=== PATIENT | female | born 1955 | race Caucasian/White ===

== ENCOUNTER 2017-10-13 10:58 | Day surgery (SDC) | payer MEDICARE, MEDICAID ==
[2017-10-12 11:22] VITALS: BMI 37.8
[2017-10-13] MEDS ORDERED: Lidocaine 1% PF 5 ML VIAL ONE (14:11)
[2017-10-13] MEDS ORDERED: PROPOFOL 200 MG/20 ML VIAL ONE (14:11)
--- NOTE | 2017-10-13 18:02 | OP ---
DATE OF PROCEDURE: 10/13/2017 PROCEDURE: Colonoscopy with polypectomy and control of hemorrhage. INDICATION FOR PROCEDURE: Screening for malignant neoplasm of the colon, average risk. DESCRIPTION OF PROCEDURE: After the risks and benefits of the procedure were explained to the patient including risks of bleeding, infection, perforation, reaction to anesthesia and/or pain, informed consent was obtained. The patient was then taken to the endoscopy suite where deep sedation was administered via propofol and anesthesia support. After adequate anesthesia was achieved, a standard colonoscope was introduced into the rectum and advanced to the terminal ileum with slow withdrawal and the findings listed below. The quality of the prep was fair with a moderate amount of liquid stool seen in all segments of the colon that was somewhat amenable to aggressive irrigation and suctioning. The patient tolerated the procedure well with no immediate perioperative complications. FINDINGS: Digital rectal examination: Small perianal skin tags were seen as well as small external hemorrhoids. Colon findings: The colonoscopy prep was fair with a moderate amount of liquid stool seen throughout the colon in the dependant flexures that was only somewhat amenable to irrigation and suctioning, but not adequate enough for screening purposes. Of the mucosa seen: Normal appearing mucosa was seen in the terminal ileum as well as the cecum and at the ileocecal valve and appendiceal orifice. A 3-4 mm polyp was seen in the ascending colon and completely removed with cold snare polypectomy. It was placed in a specimen jar and retrieved for evaluation. Five polyps measuring 3- 5 mm in size were seen in the transverse colon and completely removed with cold snare polypectomy. They were retrieved and placed in a specimen jar for evaluation. Five additional polyps were seen in the descending colon measuring between 3 and 5 mm in size. They were completely removed with either jumbo biopsy forceps or cold snare polypectomy and retrieved and placed in a specimen jar for evaluation. Three polyps measuring 2-4 mm in size were seen in the sigmoid colon and completely removed with either jumbo forceps or cold snare polypectomy. They were retrieved and placed in a specimen jar for evaluation. A 1.5 cm pedunculated polyp was seen at 30 cm past the anal verge and completely removed with hot snare polypectomy. It was retrieved and placed in a specimen jar for evaluation. Two hemeclips were placed on the stalk for prophylaxis against post-polypectomy bleeding. An additional large pedunculated polyp measuring 1.5-2 cm was seen at 20 cm past the anal verge. It was completely removed with hot snare polypectomy and placed in a specimen jar for evaluation. Again, two hemeclips were placed on the stalk for prophylaxis against post-polypectomy bleeding. Additional small/diminutive polyps were seen in the distal sigmoid and rectum, but not retrieved during this evaluation due to time constraints and fair colonic preparation. Small internal hemorrhoids were seen on rectal retroflexion. IMPRESSION: 1. A 3-4 mm ascending colon polyp, removed with cold snare polypectomy. 2. Five polyps measuring 3-5 mm in size, seen in the transverse colon, and removed with cold snare polypectomy. 3. Five polyps measuring 3-5 mm in size were seen in the descending colon and removed with biopsy forceps and cold snare polypectomy. 4. Three polyps measuring 2-4 mm in size were seen in the sigmoid colon and removed with jumbo forceps and cold snare polypectomy. 5. A 1.5 cm pedunculated polyp seen at 30 cm, removed with hot snare polypectomy. 6. 1.5-2 cm pedunculated polyp seen at 20 cm past the anal verge, status post hot snare polypectomy. 7. Internal and external hemorrhoids. 8. Perianal skin tags. 9. Fair amount of liquid stool seen throughout the colon preventing adequate visualization for screening purposes. RECOMMENDATIONS: 1. We will follow up on biopsy results for all polyps removed today. 2. We would hold on any anticoagulation for the next 48-72 hours given the number of polyps removed. 3. We would repeat the colonoscopy in 6 months due to fair prep and the number of polyps removed on examination today. 4. We would have the patient follow up in the GI clinic in 3 weeks for discussion regarding repeat colonoscopy and biopsy results. LORA
== END 2017-10-13 16:00 | disposition home or self-care (01) ==
LOC: SDC 10:58
PROVIDERS: ATTEND Internal Medicine
PROC: 0DBK8ZX Excision of Ascending Colon, Via Natural or Artificial Opening Endoscopic, Diagnostic (ICD-10-PCS; principal; 2017-10-13)
PROC: 0DBL8ZX Excision of Transverse Colon, Via Natural or Artificial Opening Endoscopic, Diagnostic (ICD-10-PCS; 2017-10-13)
PROC: 0DBN8ZX Excision of Sigmoid Colon, Via Natural or Artificial Opening Endoscopic, Diagnostic (ICD-10-PCS; 2017-10-13)
PROC: 0DBM8ZX Excision of Descending Colon, Via Natural or Artificial Opening Endoscopic, Diagnostic (ICD-10-PCS; 2017-10-13)
DX: Z12.11 Encounter for screening for malignant neoplasm of colon (principal); D12.2 Benign neoplasm of ascending colon; D12.5 Benign neoplasm of sigmoid colon; D12.3 Benign neoplasm of transverse colon; D12.6 Benign neoplasm of colon, unspecified; K64.8 Other hemorrhoids; K64.4 Residual hemorrhoidal skin tags; M19.90 Unspecified osteoarthritis, unspecified site; F32.9 Major depressive disorder, single episode, unspecified; Z88.0 Allergy status to penicillin; Z87.891 Personal history of nicotine dependence; Z79.899 Other long term (current) drug therapy
CPT/HCPCS: 88305; J2001; J2704

== ENCOUNTER 2018-01-15 12:31 | Outpatient (CLI) | payer MEDICARE, MEDICAID | END 2018-01-15 12:32 | disposition home or self-care (01) | LOC: BICMAMMO 12:31 | PROVIDERS: ATTEND Nurse Practitioner Family | DX: Z12.31 Encounter for screening mammogram for malignant neoplasm of breast (principal) | CPT/HCPCS: 77063; 77067 ==

== ENCOUNTER 2018-04-21 05:57 | Day surgery (SDC) | payer MEDICARE, OTHER ==
[2018-04-20 08:56] VITALS: BMI 37.8
--- NOTE | 2018-04-21 08:47 | OP ---
DATE OF PROCEDURE: 04/21/2018 PROCEDURE PERFORMED: Colonoscopy with polypectomy. INDICATION FOR PROCEDURE: Personal history of adenomatous polyps of the colon, inadequate prior prep on prior colonoscopy. DESCRIPTION OF PROCEDURE: After the risks and benefits of the procedure were explained to the patien t including risks of bleeding, infection, perforation, reaction to anesthesia, aspiration and/or pain , informed consent was obtained. The patient was then taken to the endoscopy suite where deep sedati on was administered via propofol and anesthesia support. After adequate anesthesia was achieved, a d igital rectal examination was performed followed by introduction of the standard colonoscope into the rectum and advanced to the cecum without difficulty. The colonic mucosa was visualized on slow with drawal with the findings listed below. The quality of the prep was good to excellent with a minimal amount of stool within the right colon that was amenable to irrigation and suctioning. The patient t olerated the procedure well with no immediate perioperative complications. Upon conclusion of the pr ocedure, all equipment was removed, and the patient was taken to recovery in satisfactory condition. FINDINGS: DIGITAL RECTAL EXAM: Small perianal skin tags were seen as well as small external hemorrhoids. COLON FINDINGS: Normal appearing mucosa was seen at the appendiceal orifice, ileocecal valve, and wi thin the cecum itself. A 4-5 mm polyp was seen in the ascending colon and completely removed with co ld snare polypectomy, it was retrieved and placed in specimen jar for evaluation. Normal appearing m ucosa was seen in the distal ascending and transverse colons. Two additional polyps measuring 3-4 mm in size were seen in the descending colon and completely removed with cold snare polypectomy. They were both retrieved and placed in a specimen jar for evaluation. Normal appearing mucosa was then se en in the sigmoid colon. The previously large tubulovillous adenomas at 20 and 30 cm were not seen d uring this examination, neither with the Hemoclips placed at the prior colonoscopy. Six additional p olyps were seen in the rectum measuring 3-5 mm in size and were completely removed with cold snare po lypectomy. They were retrieved and placed in specimen jar for evaluation. On rectal retroflexion, s mall internal hemorrhoids were also seen. IMPRESSION: 1. A 4-5 mm ascending colon polyp, status post cold snare polypectomy. 2. Two 3-4 mm descending colon polyps status post cold snare polypectomy. 3. Six 3-5 mm polyps in the rectum status post cold snare polypectomy. 4. Small internal and external hemorrhoids. 5. Perianal skin tags. RECOMMENDATIONS: 1. We will follow up on the biopsy results with repeat colonoscopy interval depending on pathology; however, given the number of adenomatous polyps removed on the prior colonoscopy, we would most likel y recommend a repeat colonoscopy in 1 year. 2. We would hold any anticoagulation for the next 48-72 hours given polyps removed today. 3. We would have the patient follow up in the GI clinic as needed.
[2018-04-21] MEDS ORDERED: Lidocaine 1% PF 5 ML VIAL ONE (13:44)
[2018-04-21] MEDS ORDERED: PROPOFOL 200 MG/20 ML VIAL ONE (13:44)
== END 2018-04-21 09:20 | disposition home or self-care (01) ==
LOC: SDC 05:57
PROVIDERS: ATTEND Internal Medicine
PROC: 0DBK8ZX Excision of Ascending Colon, Via Natural or Artificial Opening Endoscopic, Diagnostic (ICD-10-PCS; principal; 2018-04-21)
PROC: 0DBP8ZX Excision of Rectum, Via Natural or Artificial Opening Endoscopic, Diagnostic (ICD-10-PCS; 2018-04-21)
PROC: 0DBM8ZZ Excision of Descending Colon, Via Natural or Artificial Opening Endoscopic (ICD-10-PCS; 2018-04-21)
DX: Z12.11 Encounter for screening for malignant neoplasm of colon (principal); D12.4 Benign neoplasm of descending colon; K63.5 Polyp of colon; K62.1 Rectal polyp; K64.4 Residual hemorrhoidal skin tags; K64.8 Other hemorrhoids; Z86.010 Personal history of colon polyps; Z87.891 Personal history of nicotine dependence; Z79.82 Long term (current) use of aspirin; Z79.899 Other long term (current) drug therapy; Z88.0 Allergy status to penicillin; Z88.8 Allergy status to other drugs, medicaments and biological substances
CPT/HCPCS: 88305; J2001; J2704

== ENCOUNTER 2018-09-15 07:58 | Outpatient (CLI) | payer MEDICARE, OTHER ==
--- NOTE | 2018-09-15 08:19 | RAD ---
XR Chest Pa Lat @ [facility] HISTORY: Dyspnea COMPARISON: 01/21/2017 FINDINGS: The heart size is normal. The lungs are well expanded without focal areas of consolidation, pneumothorax or pleural effusions.Degenerative changes are seen in the spine. The aorta is tortuous IMPRESSION: No radiographic evidence of acute cardiopulmonary process.
== END 2018-09-15 07:59 | disposition home or self-care (01) ==
LOC: RAD 07:58
PROVIDERS: ATTEND Internal Medicine Critical Care Medicine
DX: R06.00 Dyspnea, unspecified (principal)
CPT/HCPCS: 71046

== ENCOUNTER 2019-04-14 07:01 | Day surgery (SDC) | payer MEDICARE, MEDICAID ==
[2019-04-13 10:51] VITALS: BMI 39.6
[2019-04-14] MEDS ORDERED: PROPOFOL 200 MG/20 ML VIAL ONE (13:48)
[2019-04-14] MEDS ORDERED: Lidocaine 1% PF 5 ML VIAL ONE (13:48)
--- NOTE | 2019-04-14 13:58 | OP ---
DATE OF PROCEDURE: 04/14/2019 PROCEDURE PERFORMED: Colonoscopy with polypectomy. INDICATION FOR PROCEDURE: Personal history of adenomatous polyps of the colon. DESCRIPTION OF PROCEDURE: After the risks and benefits of the procedure were explained to the patient including risks of bleeding, infection, perforation, reactions to anesthesia, aspiration and/or pain, informed consent was obtained. The patient was then taken to the endoscopy suite, where deep sedation was administered via propofol and anesthesia support. Once adequate sedation was achieved and the patient was placed in the left lateral decubitus position, a digital rectal examination was performed. Upon completion of this maneuver, the standard colonoscope was introduced into the rectum and advanced to the cecum without difficulty. The quality of the prep was good with adequate visualization achieved. The patient tolerated the procedure well with no immediate perioperative complications. Upon conclusion of the procedure, all equipment was removed from the patient and she was transferred to Day Stay in satisfactory condition. FINDINGS: Digital rectal exam, small perianal skin tags were seen on external examination. Colon findings: Normal-appearing mucosa was seen at the appendiceal orifice and at the ileocecal valve. However, a 5 to 6 mm polyp was seen in the cecum and completely removed with snare cautery polypectomy. It was retrieved and placed in a specimen jar for evaluation. Normal-appearing mucosa was then seen within the ascending colon; however, a 3 to 4 mm polyp was seen in the transverse colon and completely removed with snare cautery polypectomy. However, this polyp was unable to be retrieved. Four additional polyps measuring between 3 and 5 mm in size were seen in the descending colon. They were removed with a combination of cold snare polypectomy and snare cautery polypectomy and completely removed with either of these maneuvers. However, only three of the four were able to be retrieved and placed in a specimen jar for evaluation. Normal-appearing mucosa was then seen in the sigmoid colon. An additional 3 mm polyp was seen in the rectum and completely removed with cold snare polypectomy, it was retrieved and placed in a specimen jar for evaluation. Small internal hemorrhoids were seen on rectal retroflexion. IMPRESSION: 1. 5 to 6 mm cecal polyp, status post snare cautery polypectomy. 2. 3 to 4 mm transverse colon polyp, status post snare cautery polypectomy, but not retrieved. 3. 4 descending colon polyps measuring 3 to 5 mm in size, status post cold snare and hot snare polypectomy (only 3 of the 4 were retrieved). 4. 3 mm rectal polyp, status post cold snare polypectomy. 5. Small internal hemorrhoids. 6. Perianal skin tags. RECOMMENDATIONS: 1. We will follow up on the pathology results with repeat colonoscopy interval determined by the pathology report. 2. If a significant number of these polyps are adenomatous in nature, would then recommend genetic testing for possible polyposis syndrome given the number of adenomatous polyps removed in the past. 3. Would recommend a higher fiber diet. 4. Would follow up in the GI Clinic in 4 weeks for further evaluation of her colon polyps. Job ID: [id number]
== END 2019-04-14 11:05 | disposition home or self-care (01) ==
LOC: SDC 07:01
PROVIDERS: ATTEND Internal Medicine
PROC: 0DBH8ZX Excision of Cecum, Via Natural or Artificial Opening Endoscopic, Diagnostic (ICD-10-PCS; principal; 2019-04-14)
PROC: 0DBL8ZZ Excision of Transverse Colon, Via Natural or Artificial Opening Endoscopic (ICD-10-PCS; 2019-04-14)
PROC: 0DBP8ZX Excision of Rectum, Via Natural or Artificial Opening Endoscopic, Diagnostic (ICD-10-PCS; 2019-04-14)
PROC: 0DBM8ZZ Excision of Descending Colon, Via Natural or Artificial Opening Endoscopic (ICD-10-PCS; 2019-04-14)
DX: Z12.11 Encounter for screening for malignant neoplasm of colon (principal); D12.0 Benign neoplasm of cecum; D12.4 Benign neoplasm of descending colon; K62.1 Rectal polyp; K64.4 Residual hemorrhoidal skin tags; K64.8 Other hemorrhoids; Z86.010 Personal history of colon polyps; Z79.82 Long term (current) use of aspirin; Z79.899 Other long term (current) drug therapy; Z88.0 Allergy status to penicillin; Z88.8 Allergy status to other drugs, medicaments and biological substances
CPT/HCPCS: 88305

== ENCOUNTER 2021-02-14 08:40 | Outpatient (CLI) | payer MEDICARE, MEDICAID | END 2021-02-14 08:41 | disposition home or self-care (01) | LOC: BICMAMMO 08:40 | PROVIDERS: ATTEND Nurse Practitioner Family | DX: Z12.31 Encounter for screening mammogram for malignant neoplasm of breast (principal) | CPT/HCPCS: 77063; 77067 ==

== ENCOUNTER 2023-01-20 12:46 | Outpatient (CLI) | payer OTHER, MEDICAID | END 2023-01-20 12:47 | disposition home or self-care (01) | LOC: MRI 12:46 | PROVIDERS: ATTEND Family Medicine | DX: M48.061 Spinal stenosis, lumbar region without neurogenic claudication (principal); M48.02 Spinal stenosis, cervical region; M47.812 Spondylosis without myelopathy or radiculopathy, cervical region; G93.9 Disorder of brain, unspecified; M51.36 Other intervertebral disc degeneration, lumbar region; I25.10 Atherosclerotic heart disease of native coronary artery without angina pectoris; I10 Essential (primary) hypertension; R20.2 Paresthesia of skin; E78.5 Hyperlipidemia, unspecified; R69 Illness, unspecified; I70.90 Unspecified atherosclerosis; R29.898 Other symptoms and signs involving the musculoskeletal system; Z86.73 Personal history of transient ischemic attack (TIA), and cerebral infarction without residual deficits | CPT/HCPCS: 70553; 72141; 72148 ==

== ENCOUNTER 2023-07-21 09:47 | Outpatient (CLI) | payer OTHER ==
[2023-07-21 12:05] LABS: #Eosinphils 0.3 10x3/uL (0.0-0.5); #Monocytes 0.7 10x3/uL (0.0-1.1); #Neutrophils 3.8 10x3/uL (1.5-8.4); %Basophils 0.4 % (0.0-2.0); %Eosinophils 3.5 % (0.0-6.0); %Lymphocytes 38.9 % (18.0-47.0); %Monocytes 8.5 % (0.0-10.0); %Neutrophils 48.4 % (40.0-75.0); Hematocrit 44.6 % (34.9-44.5); Hemoglobin 14.9 g/dL (12.0-15.5); Mean Corpuscular HGB CONC 33.4 g/dL (32.0-36.0); Mean Corpuscular Volume 92.7 fl (81.6-98.3); Mean Platelet Volume 10.8 fl (7.4-10.4); Platelet Count 254 10x3/uL (150-450); RBC Distribution Width 12.7 % (11.5-14.5); Red Blood Cell (RBC) Count 4.81 10x6/uL (3.90-5.03); White Blood Cell (WBC) Count 7.9 10x3/uL (3.5-10.5)
== END 2023-07-21 09:48 | disposition home or self-care (01) ==
LOC: LABBT 09:47
PROVIDERS: ATTEND Orthopaedic Surgery Hand Surgery
DX: Z01.818 Encounter for other preprocedural examination (principal); G56.02 Carpal tunnel syndrome, left upper limb
CPT/HCPCS: 85025; 93005; 93010

== ENCOUNTER 2023-07-24 05:44 | Day surgery (SDC) | payer OTHER ==
[2023-07-21 10:20] VITALS: BMI 37.8
[2023-07-24] MEDS ORDERED: Bupivacaine PF 0.5% 30 ML VIAL ONE (06:51)
[2023-07-24] MEDS ORDERED: Bacitracin Zinc Ointment 30 gm TUBE ONE (06:51)
[2023-07-24] MEDS ORDERED: PROPOFOL 20 ML ONE (07:04)
[2023-07-24] MEDS ORDERED: Ketorolac Tromethamine 30 MG (1 mL) VIAL ONE (07:05)
[2023-07-24] MEDS ORDERED: Lidocaine 2% PF 5 ML VIAL ONE (07:05)
[2023-07-24] MEDS ORDERED: Dexamethasone 20 MG/5 ML VIAL ONE (07:05)
[2023-07-24] MEDS ORDERED: Ondansetron PF 4 MG/2 ML Vial ONE (07:05)
[2023-07-24] MEDS ORDERED: Clindamycin/D5W 900 mg/50 ml Premix Bag ONE (07:17)
[2023-07-24] MEDS ORDERED: LevoFLOXacin D5W 500 mg (100 mL) BAG ONE (07:17)
[2023-07-24] MEDS ORDERED: fentaNYL PF 100 MCG/2 ML SYRINGE ONE (07:36)
[2023-07-24] MEDS ORDERED: ePHEDrine Sulfate 50 MG/10 ML VIAL ONE (07:58)
== END 2023-07-24 09:55 | disposition home or self-care (01) ==
LOC: SDC 05:44
PROVIDERS: ATTEND Orthopaedic Surgery Hand Surgery
PROC: 01N50ZZ Release Median Nerve, Open Approach (ICD-10-PCS; principal; 2023-07-24)
DX: G56.02 Carpal tunnel syndrome, left upper limb (principal); F32.A Depression, unspecified; E78.00 Pure hypercholesterolemia, unspecified; J45.909 Unspecified asthma, uncomplicated; G47.30 Sleep apnea, unspecified; Z88.0 Allergy status to penicillin; Z88.8 Allergy status to other drugs, medicaments and biological substances; Z79.899 Other long term (current) drug therapy; Z98.890 Other specified postprocedural states
CPT/HCPCS: 64721; A6223; J0665; J1100; J1885; J1956; J2001; J2405; J2704; J3490

== ENCOUNTER 2023-10-01 13:30 | Inpatient (IN) | payer OTHER ==
[2023-10-01 15:26] VITALS: BMI 37.8
[2023-10-06 07:41] VITALS: BP 101/68; TEMP 97.9
== END 2023-10-06 10:20 | disposition home or self-care (01) | DRG 621 ==
LOC: SURG A 10-05 06:05 → SURG B 10-05 11:42
PROVIDERS: ADMIT Surgery; ATTEND Surgery
PROC: 0DB64Z3 Excision of Stomach, Percutaneous Endoscopic Approach, Vertical (ICD-10-PCS; principal; 2023-10-05)
PROC: 0BQT4ZZ Repair Diaphragm, Percutaneous Endoscopic Approach (ICD-10-PCS; 2023-10-05)
PROC: 8E0W4CZ Robotic Assisted Procedure of Trunk Region, Percutaneous Endoscopic Approach (ICD-10-PCS; 2023-10-05)
PROC: 3E033XZ Introduction of Vasopressor into Peripheral Vein, Percutaneous Approach (ICD-10-PCS; 2023-10-05)
DX: E66.01 Morbid (severe) obesity due to excess calories (principal); Z68.37 Body mass index [BMI] 37.0-37.9, adult; K44.9 Diaphragmatic hernia without obstruction or gangrene; Z79.899 Other long term (current) drug therapy; Z88.0 Allergy status to penicillin; K21.9 Gastro-esophageal reflux disease without esophagitis; J44.9 Chronic obstructive pulmonary disease, unspecified; G47.33 Obstructive sleep apnea (adult) (pediatric); E78.2 Mixed hyperlipidemia; I10 Essential (primary) hypertension; Z98.890 Other specified postprocedural states; M19.90 Unspecified osteoarthritis, unspecified site
CPT/HCPCS: 88307; C9113; J0171; J0665; J0694; J1100; J1170; J1650; J1885; J2272; J2405; J2550; J2704; J3010; J3480; J3490

== ENCOUNTER 2023-12-15 13:26 | Emergency (ER) | payer OTHER ==
[2023-12-15] MEDS ORDERED: HYDROcodone/Acetaminophen 5/325 mg Tablet ONE (14:58)
[2023-12-15] MEDS ORDERED: Acetaminophen 325 MG TAB ONE (15:12)
== END 2023-12-15 16:15 | disposition home or self-care (01) ==
LOC: ERS 13:26
DX: S16.1XXA Strain of muscle, fascia and tendon at neck level, initial encounter (principal); S46.911A Strain of unspecified muscle, fascia and tendon at shoulder and upper arm level, right arm, initial encounter; R51.9 Headache, unspecified; J44.9 Chronic obstructive pulmonary disease, unspecified; I10 Essential (primary) hypertension; E78.5 Hyperlipidemia, unspecified; Z87.891 Personal history of nicotine dependence; Z79.899 Other long term (current) drug therapy; V89.2XXA Person injured in unspecified motor-vehicle accident, traffic, initial encounter
CPT/HCPCS: 70450; 72125

== ENCOUNTER 2025-03-14 07:48 | Outpatient (CLI) | payer OTHER | END 2025-03-14 07:49 | disposition home or self-care (01) | LOC: BICMAMMO 07:48 | PROVIDERS: ATTEND Emergency Medicine | DX: Z12.31 Encounter for screening mammogram for malignant neoplasm of breast (principal); M81.0 Age-related osteoporosis without current pathological fracture | CPT/HCPCS: 77063; 77067; 77080 ==